=== PATIENT | male | born 2000 | race Caucasian/White ===

== ENCOUNTER 2021-12-04 16:06 | Emergency (ER) | payer OTHER ==
[~2021-12-04] VITALS: Ht 185.4 cm; Wt 89.0 kg
[2021-12-04] MEDS ORDERED: NS 1,000 ML IV SCH (16:40)
[2021-12-04] MEDS: propofoL 200 MG/20 ML VIAL IV PRN ×3 (17:36→17:39)
[2021-12-04] MEDS ORDERED: IBUPROFEN 600MG TAB PO ONE (18:35)
[2021-12-04 18:36] VITALS: BP 174/80
== END 2021-12-04 19:30 | disposition home or self-care (01) ==
LOC: M ED 16:06
DX: S43.004A Unspecified dislocation of right shoulder joint, initial encounter (principal); Z87.891 Personal history of nicotine dependence; Y92.9 Unspecified place or not applicable; Y93.9 Activity, unspecified; Y99.0 Civilian activity done for income or pay